=== PATIENT | female | born 1930 | race Asian ===

== ENCOUNTER 2017-03-03 14:10 | Inpatient (IN) | payer OTHER ==
[~2017-03-03] VITALS: Ht 167.6 cm; Wt 81.6 kg
[2017-03-04 06:41] LABS: PLATELET COUNT 276 K/uL (152-353)
[2017-03-04 06:48] LABS: POTASSIUM 4.2 mmol/L (3.6-5.2); SODIUM 134 mmol/L (136-145)
[2017-03-17] MEDS ORDERED: MIRALAX3350 N1 PO (12:58)
[2017-03-17] MEDS ORDERED: LISI10TA11 PO (12:59)
[2017-03-17] MEDS ORDERED: MAG OXIDE400 M2 PO (12:59)
[2017-03-17] MEDS ORDERED: LATA0.00 OP (12:59)
[2017-03-17] MEDS ORDERED: SOD CHLORIDE1 GM PO (13:00)
[2017-03-17] MEDS ORDERED: LEXAPRO10 MG PO (13:00)
[2017-03-17] MEDS ORDERED: OMEPRAZOLE20 M1 PO (13:00)
[2017-03-17] MEDS ORDERED: RIVADIS4 TOP (13:01)
[2017-03-17] MEDS ORDERED: HYDR10TA47 PO (13:05)
== END 2017-03-31 10:16 | disposition still patient (30) ==
LOC: PAVB 14:10
PROVIDERS: ADMIT Internal Medicine
DX: M62.81 Muscle weakness (generalized) (principal); R13.11 Dysphagia, oral phase; R26.89 Other abnormalities of gait and mobility; E87.1 Hypo-osmolality and hyponatremia; D64.89 Other specified anemias; H40.89 Other specified glaucoma; I10 Essential (primary) hypertension; F33.9 Major depressive disorder, recurrent, unspecified
CPT/HCPCS: 36415; 80053; 81000; 82607; 83735; 85014; 85018; 85027; 87077; 87081; 87086; 87088; 87186

== ENCOUNTER 2017-03-17 11:58 | Observation (INO) | payer OTHER ==
[~2017-03-17] VITALS: Ht 160 cm; Wt 84.1 kg
[2017-03-17 12:29] VITALS: BP 158/53; TEMP 98.7; Ht 160 cm; Wt 84.1 kg
--- NOTE | 2017-03-17 12:53 | NUR ---
BED ALARM ALARMING AND UPON ARRIVAL TO PTS ROOM PT ATTEMPTING TO GET OUT OF BED DUE TO SHE NEEDS TO CLEAN SOUP OFF OF HER. NO SOUP OR ANY FOOD IN ROOM AND ATTEMPTED TO REORIENT PT BUT SHE STATES "YOU MUST BE BLIND IF YOU CANT SEE THAT." PT ASSISTED BACK INTO BED AND BED ALARM RESET
[2017-03-17] MEDS ORDERED: MIRALAX3350 N1 PO (12:58)
[2017-03-17] MEDS ORDERED: MAG OXIDE400 M2 PO (12:59)
[2017-03-17] MEDS ORDERED: LISI10TA11 PO (12:59)
[2017-03-17] MEDS ORDERED: LATA0.00 OP (12:59)
[2017-03-17] MEDS ORDERED: SOD CHLORIDE1 GM PO (13:00)
[2017-03-17] MEDS ORDERED: OMEPRAZOLE20 M1 PO (13:00)
[2017-03-17] MEDS ORDERED: LEXAPRO10 MG PO (13:00)
[2017-03-17] MEDS ORDERED: RIVADIS4 TOP (13:01)
[2017-03-17] MEDS ORDERED: HYDR10TA47 PO (13:05)
[2017-03-17 16:00] VITALS: BP 157/63; TEMP 98.6
[2017-03-17 20:00] VITALS: BP 141/63; TEMP 97.9
[2017-03-18] VITALS: BP 144/59; TEMP 98.9
[2017-03-18 04:00] VITALS: BP 151/68; TEMP 98
[2017-03-18 06:02] LABS: PLATELET COUNT 231 K/uL (152-353)
[2017-03-18 06:15] LABS: POTASSIUM 3.6 mmol/L (3.6-5.2); SODIUM 132 mmol/L (136-145)
[2017-03-18 08:00] VITALS: BP 156/63; TEMP 98
[2017-03-18 12:23] VITALS: BP 141/58; TEMP 98.1
[2017-03-18 15:20] VITALS: BP 153/61; TEMP 98.3
[2017-03-18 20:00] VITALS: BP 136/63; TEMP 99.4
[2017-03-19] VITALS: BP 137/62; TEMP 99.4
[2017-03-19 04:00] VITALS: BP 155/63; TEMP 97.8
[2017-03-19 05:13] LABS: PLATELET COUNT 247 K/uL (152-353)
[2017-03-19 05:33] LABS: POTASSIUM 3.5 mmol/L (3.6-5.2); SODIUM 129 mmol/L (136-145)
[2017-03-19 08:00] VITALS: BP 155/71; TEMP 98.9
[2017-03-19 12:01] VITALS: BP 157/73; TEMP 99.4
--- NOTE | 2017-03-19 14:35 | NUR ---
REPORT GIVEN TO RE YEPEZ AT [facility].
--- NOTE | 2017-03-19 14:40 | NUR ---
R FA 24G IV D/C'D CATH TIP INTACT.
== END 2017-03-19 15:00 ==
LOC: MED/SURG 11:58
PROVIDERS: Emergency Medicine; ADMIT Internal Medicine
DX: N39.0 Urinary tract infection, site not specified (principal); B96.20 Unspecified Escherichia coli [E. coli] as the cause of diseases classified elsewhere; R41.82 Altered mental status, unspecified; E83.42 Hypomagnesemia; F43.10 Post-traumatic stress disorder, unspecified; I10 Essential (primary) hypertension; K21.9 Gastro-esophageal reflux disease without esophagitis; G20 Parkinson's disease; F32.89 Other specified depressive episodes
CPT/HCPCS: 36415; 80053; 81000; 83735; 85027; 99220; G0378; G0379; J0744; J1650; J3475

== ENCOUNTER 2017-03-31 10:30 | Inpatient (IN) | payer OTHER ==
[~2017-03-31 10:30] MED LIST: HYDR10TA47 PO; LATA0.00 OP; LEXAPRO10 MG PO; LISI10TA11 PO; MAG OXIDE400 M2 PO; MIRALAX3350 N1 PO; OMEPRAZOLE20 M1 PO; RIVADIS4 TOP; SOD CHLORIDE1 GM PO
[2017-04-14 05:41] LABS: POTASSIUM 3.9 mmol/L (3.6-5.2); SODIUM 139 mmol/L (136-145)
== END 2017-04-30 15:26 | disposition still patient (30) ==
LOC: PAVB 10:30
PROVIDERS: ADMIT Internal Medicine
DX: Z51.89 Encounter for other specified aftercare (principal)
CPT/HCPCS: 36415; 80048; 83735; 93306

== ENCOUNTER 2017-03-31 15:20 | Outpatient (CLI) | payer OTHER | END 2017-03-31 19:20 | disposition home or self-care (01) | LOC: RESP 15:20 | DX: R60.0 Localized edema (principal) | CPT/HCPCS: 93306 ==

== ENCOUNTER 2017-04-21 08:44 | Outpatient (CLI) | payer OTHER | END 2017-04-21 20:00 | disposition home or self-care (01) | LOC: US 08:44 | DX: R60.0 Localized edema (principal) ==

== ENCOUNTER 2017-04-30 16:00 | Inpatient (IN) | payer OTHER | END 2017-05-31 09:48 | disposition still patient (30) | LOC: PAVB 16:00 | PROVIDERS: ADMIT Internal Medicine | DX: Z51.89 Encounter for other specified aftercare (principal) ==

== ENCOUNTER 2017-05-31 11:24 | Inpatient (IN) | payer OTHER | END 2017-07-01 08:46 | disposition still patient (30) | LOC: PAVB 11:24 | PROVIDERS: ADMIT Internal Medicine | DX: Z51.89 Encounter for other specified aftercare (principal) ==

== ENCOUNTER 2017-07-01 09:34 | Inpatient (IN) | payer OTHER | END 2017-07-31 10:10 | disposition still patient (30) | LOC: PAVB 09:34 | PROVIDERS: ADMIT Internal Medicine | DX: Z51.89 Encounter for other specified aftercare (principal) ==

== ENCOUNTER 2017-07-31 10:22 | Inpatient (IN) | payer OTHER | END 2017-08-31 13:03 | disposition still patient (30) | LOC: PAVB 10:22 | PROVIDERS: ADMIT Internal Medicine ==

== ENCOUNTER 2017-08-31 14:11 | Inpatient (IN) | payer OTHER | END 2017-09-30 09:24 | disposition still patient (30) | LOC: PAVB 14:11 | PROVIDERS: ADMIT Internal Medicine ==

== ENCOUNTER 2017-09-05 09:57 | Outpatient (CLI) | payer OTHER ==
[2017-09-05 10:31] LABS: PLATELET COUNT 213 K/uL (152-353)
== END 2017-09-05 11:00 | disposition home or self-care (01) ==
LOC: LAB 09:57
PROVIDERS: Internal Medicine
DX: I10 Essential (primary) hypertension (principal); E87.1 Hypo-osmolality and hyponatremia
CPT/HCPCS: 80053; 83735; 85027

== ENCOUNTER 2017-09-30 10:03 | Inpatient (IN) | payer OTHER | END 2017-10-31 09:43 | disposition still patient (30) | LOC: PAVB 10:03 | PROVIDERS: ADMIT Internal Medicine ==

== ENCOUNTER 2017-10-31 10:49 | Inpatient (IN) | payer OTHER | END 2017-12-01 09:59 | disposition still patient (30) | LOC: PAVB 10:49 | PROVIDERS: ADMIT Internal Medicine ==

== ENCOUNTER 2017-12-01 11:05 | Inpatient (IN) | payer OTHER | END 2017-12-29 09:23 | disposition still patient (30) | LOC: PAVB 11:05 | PROVIDERS: ADMIT Internal Medicine ==

== ENCOUNTER 2017-12-29 10:28 | Inpatient (IN) | payer OTHER | END 2018-01-29 08:00 | disposition still patient (30) | LOC: PAVB 10:28 | PROVIDERS: ADMIT Internal Medicine ==

== ENCOUNTER 2018-01-29 09:00 | Inpatient (IN) | payer OTHER | END 2018-02-28 08:10 | disposition still patient (30) | LOC: PAVB 09:00 → PAVA 02-13 15:01 | PROVIDERS: ADMIT Internal Medicine ==

== ENCOUNTER 2018-02-28 08:39 | Inpatient (IN) | payer OTHER ==
[2018-03-10 04:17] LABS: PLATELET COUNT 229 K/uL (152-353)
[2018-03-10 04:31] LABS: POTASSIUM 4.3 mmol/L (3.6-5.2)
== END 2018-03-31 08:19 | disposition still patient (30) ==
LOC: PAVA 08:39
PROVIDERS: ADMIT Internal Medicine
CPT/HCPCS: 80053; 83735; 85027

== ENCOUNTER 2018-03-10 04:03 | Outpatient (CLI) | payer OTHER | END 2018-03-10 22:43 | disposition home or self-care (01) | LOC: LAB 04:03 | DX: I10 Essential (primary) hypertension (principal); E87.1 Hypo-osmolality and hyponatremia; E61.2 Magnesium deficiency ==

== ENCOUNTER 2018-03-31 08:30 | Inpatient (IN) | payer OTHER | END 2018-04-30 14:14 | disposition still patient (30) | LOC: PAVA 08:30 | PROVIDERS: ADMIT Internal Medicine ==

== ENCOUNTER 2018-04-30 14:26 | Inpatient (IN) | payer OTHER | END 2018-05-31 08:00 | disposition still patient (30) | LOC: PAVA 14:26 | PROVIDERS: ADMIT Internal Medicine ==

== ENCOUNTER 2018-05-31 09:00 | Inpatient (IN) | payer OTHER | END 2018-07-01 09:56 | disposition still patient (30) | LOC: PAVA 09:00 | PROVIDERS: ADMIT Internal Medicine ==

== ENCOUNTER 2018-07-01 10:04 | Inpatient (IN) | payer OTHER | END 2018-07-31 08:38 | disposition still patient (30) | LOC: PAVA 10:04 | PROVIDERS: ADMIT Internal Medicine ==

== ENCOUNTER 2018-07-31 08:50 | Inpatient (IN) | payer OTHER | END 2018-08-31 08:09 | disposition still patient (30) | LOC: PAVA 08:50 | PROVIDERS: ADMIT Internal Medicine ==

== ENCOUNTER 2018-08-31 08:20 | Inpatient (IN) | payer OTHER | END 2018-09-30 08:03 | disposition still patient (30) | LOC: PAVA 08:20 | PROVIDERS: ADMIT Internal Medicine ==

== ENCOUNTER 2018-09-04 04:02 | Outpatient (CLI) | payer OTHER ==
[2018-09-04 04:44] LABS: PLATELET COUNT 224 K/uL (152-353)
[2018-09-04 05:06] LABS: POTASSIUM 4.2 mmol/L (3.6-5.2)
== END 2018-09-04 19:14 | disposition home or self-care (01) ==
LOC: LAB 04:02
PROVIDERS: Internal Medicine
DX: I10 Essential (primary) hypertension (principal)
CPT/HCPCS: 36415; 80053; 83735; 85027

== ENCOUNTER 2018-09-06 22:35 | Outpatient (CLI) | payer OTHER | END 2018-09-06 23:30 | disposition home or self-care (01) | LOC: LAB 22:35 | DX: D64.9 Anemia, unspecified (principal) | CPT/HCPCS: 82607 ==

== ENCOUNTER 2018-09-30 08:13 | Inpatient (IN) | payer OTHER | END 2018-10-31 10:19 | disposition still patient (30) | LOC: PAVA 08:13 | PROVIDERS: ADMIT Internal Medicine ==

== ENCOUNTER 2018-10-10 09:30 | Outpatient (CLI) | payer OTHER | END 2018-10-10 22:10 | disposition home or self-care (01) | LOC: RAD 09:30 | DX: Z78.0 Asymptomatic menopausal state (principal) ==

== ENCOUNTER 2018-10-31 10:32 | Inpatient (IN) | payer OTHER | END 2018-12-01 14:07 | disposition still patient (30) | LOC: PAVA 10:32 | PROVIDERS: ADMIT Internal Medicine ==

== ENCOUNTER 2018-12-01 14:13 | Inpatient (IN) | payer OTHER | END 2018-12-29 09:13 | disposition still patient (30) | LOC: PAVA 14:13 | PROVIDERS: ADMIT Internal Medicine ==

== ENCOUNTER 2018-12-29 09:29 | Inpatient (IN) | payer OTHER | END 2019-01-29 07:53 | disposition still patient (30) | LOC: PAVA 09:29 | PROVIDERS: ADMIT Internal Medicine ==

== ENCOUNTER 2019-01-29 08:25 | Inpatient (IN) | payer OTHER | END 2019-02-28 09:30 | disposition still patient (30) | LOC: PAVA 08:25 | PROVIDERS: ADMIT Internal Medicine ==

== ENCOUNTER 2019-02-28 10:34 | Inpatient (IN) | payer OTHER | END 2019-03-31 08:11 | disposition still patient (30) | LOC: PAVA 10:34 | PROVIDERS: ADMIT Internal Medicine | DX: Z51.89 Encounter for other specified aftercare (principal) ==

== ENCOUNTER 2019-03-02 05:21 | Outpatient (CLI) | payer OTHER ==
[2019-03-02 05:47] LABS: PLATELET COUNT 216 K/uL (152-353)
[2019-03-02 06:10] LABS: POTASSIUM 4.8 mmol/L (3.6-5.2)
== END 2019-03-02 19:56 | disposition home or self-care (01) ==
LOC: LAB 05:21
PROVIDERS: Internal Medicine
DX: I10 Essential (primary) hypertension (principal); Z79.899 Other long term (current) drug therapy
CPT/HCPCS: 80053; 83735; 85027

== ENCOUNTER 2019-03-31 08:21 | Inpatient (IN) | payer OTHER | END 2019-04-30 08:26 | disposition still patient (30) | LOC: PAVA 08:21 | PROVIDERS: ADMIT Internal Medicine ==

== ENCOUNTER 2019-04-30 08:51 | Inpatient (IN) | payer OTHER | END 2019-05-31 09:03 | disposition still patient (30) | LOC: PAVA 08:51 | PROVIDERS: ADMIT Internal Medicine ==

== ENCOUNTER 2019-05-31 09:37 | Inpatient (IN) | payer OTHER | END 2019-07-01 15:57 | disposition still patient (30) | LOC: PAVA 09:37 | PROVIDERS: ADMIT Internal Medicine ==

== ENCOUNTER 2019-07-01 16:18 | Inpatient (IN) | payer OTHER | END 2019-07-31 08:04 | disposition still patient (30) | LOC: PAVA 16:18 | PROVIDERS: ADMIT Internal Medicine ==

== ENCOUNTER 2019-07-31 08:41 | Inpatient (IN) | payer OTHER | END 2019-08-31 08:34 | disposition still patient (30) | LOC: PAVA 08:41 | PROVIDERS: ADMIT Internal Medicine ==

== ENCOUNTER 2019-08-31 04:59 | Outpatient (CLI) | payer OTHER ==
[2019-08-31 06:33] LABS: PLATELET COUNT 230 K/uL (152-353)
[2019-08-31 06:48] LABS: POTASSIUM 4.8 mmol/L (3.6-5.2)
== END 2019-08-31 22:09 | disposition home or self-care (01) ==
LOC: LAB 04:59
PROVIDERS: Internal Medicine
DX: Z79.899 Other long term (current) drug therapy (principal); I10 Essential (primary) hypertension
CPT/HCPCS: 80053; 83735; 85027

== ENCOUNTER 2019-08-31 10:48 | Inpatient (IN) | payer OTHER | END 2019-09-30 08:00 | disposition still patient (30) | LOC: PAVA 10:48 | PROVIDERS: ADMIT Internal Medicine ==

== ENCOUNTER 2019-09-30 08:41 | Inpatient (IN) | payer OTHER | END 2019-10-31 07:58 | disposition still patient (30) | LOC: PAVA 08:41 | PROVIDERS: ADMIT Internal Medicine ==

== ENCOUNTER 2019-10-31 08:09 | Inpatient (IN) | payer OTHER | END 2019-12-01 09:30 | disposition still patient (30) | LOC: PAVA 08:09 | PROVIDERS: ADMIT Internal Medicine ==

== ENCOUNTER 2019-12-01 09:39 | Inpatient (IN) | payer OTHER | END 2019-12-30 12:44 | disposition still patient (30) | LOC: PAVA 09:39 | PROVIDERS: ADMIT Internal Medicine ==

== ENCOUNTER 2019-12-30 12:54 | Inpatient (IN) | payer OTHER | END 2020-01-30 08:57 | disposition still patient (30) | LOC: PAVA 12:54 | PROVIDERS: ADMIT Internal Medicine ==

== ENCOUNTER 2020-01-09 14:41 | Outpatient (CLI) | payer OTHER | END 2020-01-09 22:35 | disposition home or self-care (01) | LOC: LAB 14:41 | DX: R82.998 Other abnormal findings in urine (principal); R41.82 Altered mental status, unspecified | CPT/HCPCS: 81000 ==

== ENCOUNTER 2020-01-30 09:15 | Inpatient (IN) | payer OTHER | END 2020-02-29 08:01 | disposition still patient (30) | LOC: PAVA 09:15 | PROVIDERS: ADMIT Internal Medicine ==

== ENCOUNTER 2020-02-29 08:29 | Inpatient (IN) | payer OTHER | END 2020-03-31 08:10 | disposition still patient (30) | LOC: PAVA 08:29 | PROVIDERS: ADMIT Internal Medicine | CPT/HCPCS: 87635; U0002 ==

== ENCOUNTER 2020-03-03 07:02 | Outpatient (CLI) | payer OTHER ==
[2020-03-03 08:20] LABS: PLATELET COUNT 252 K/uL (152-353)
[2020-03-03 08:37] LABS: POTASSIUM 4.4 mmol/L (3.6-5.2)
== END 2020-03-03 19:22 | disposition home or self-care (01) ==
LOC: LAB 07:02
PROVIDERS: Internal Medicine
DX: I10 Essential (primary) hypertension (principal); Z79.899 Other long term (current) drug therapy; E87.1 Hypo-osmolality and hyponatremia
CPT/HCPCS: 80053; 83735; 85027

== ENCOUNTER 2020-03-06 14:02 | Outpatient (CLI) | payer OTHER ==
[2020-03-06 14:12] LABS: PLATELET COUNT 235 K/uL (152-353)
[2020-03-06 14:25] LABS: POTASSIUM 4.5 mmol/L (3.6-5.2)
== END 2020-03-06 20:11 | disposition home or self-care (01) ==
LOC: LAB 14:02
PROVIDERS: Internal Medicine
DX: U07.1 COVID-19 (principal); Z79.899 Other long term (current) drug therapy
CPT/HCPCS: 36415; 80053; 85027; 85379; 86140

== ENCOUNTER 2020-03-18 16:08 | Outpatient (CLI) | payer OTHER ==
[2020-03-18 16:42] LABS: PLATELET COUNT 286 K/uL (152-353)
[2020-03-18 16:53] LABS: POTASSIUM 4.7 mmol/L (3.6-5.2)
== END 2020-03-18 19:14 | disposition home or self-care (01) ==
LOC: LABW 16:08
PROVIDERS: Internal Medicine
DX: U07.1 COVID-19 (principal); Z79.899 Other long term (current) drug therapy
CPT/HCPCS: 80053; 85007; 85027

== ENCOUNTER 2020-03-25 05:46 | Outpatient (CLI) | payer OTHER ==
[2020-03-25 06:16] LABS: PLATELET COUNT 422 K/uL (152-353)
[2020-03-25 06:42] LABS: POTASSIUM 4.9 mmol/L (3.6-5.2)
== END 2020-03-25 21:45 | disposition home or self-care (01) ==
LOC: LAB 05:46
PROVIDERS: Internal Medicine
DX: U07.1 COVID-19 (principal); Z79.899 Other long term (current) drug therapy
CPT/HCPCS: 80053; 85027

== ENCOUNTER 2020-03-31 08:20 | Inpatient (IN) | payer OTHER | END 2020-04-30 08:25 | disposition still patient (30) | LOC: PAVA 08:20 | PROVIDERS: ADMIT Internal Medicine | CPT/HCPCS: 87635; U0002 ==

== ENCOUNTER 2020-04-30 08:47 | Inpatient (IN) | payer OTHER | END 2020-05-31 08:22 | disposition still patient (30) | LOC: PAVA 08:47 | PROVIDERS: ADMIT Internal Medicine ==

== ENCOUNTER 2020-05-23 18:42 | Outpatient (CLI) | payer OTHER ==
[2020-05-23 19:04] LABS: POTASSIUM 4.8 mmol/L (3.6-5.2)
[2020-05-23 19:14] LABS: PLATELET COUNT 255 K/uL (152-353)
== END 2020-05-23 19:51 | disposition home or self-care (01) ==
LOC: LABW 18:42
PROVIDERS: ATTEND Internal Medicine
DX: R63.4 Abnormal weight loss (principal); R63.0 Anorexia
CPT/HCPCS: 36415; 80053; 85027

== ENCOUNTER → 2020-05-23 | Outpatient (CLI) | payer OTHER | LOC: LAB 23:36 | PROVIDERS: ATTEND Internal Medicine | DX: D72.828 Other elevated white blood cell count (principal); R82.998 Other abnormal findings in urine; R79.89 Other specified abnormal findings of blood chemistry | CPT/HCPCS: 81000; 87077; 87086; 87088; 87185; 87186 ==

== ENCOUNTER → 2020-05-23 | Outpatient (CLI) | payer OTHER | LOC: RAD 23:07 | PROVIDERS: ATTEND Internal Medicine | DX: D72.828 Other elevated white blood cell count (principal) ==

== ENCOUNTER 2020-05-31 08:47 | Inpatient (IN) | payer OTHER | END 2020-07-01 10:39 | disposition still patient (30) | LOC: PAVA 08:47 | PROVIDERS: ADMIT Internal Medicine ==

== ENCOUNTER 2020-06-05 05:18 | Outpatient (CLI) | payer OTHER | END 2020-06-05 20:03 | disposition home or self-care (01) | LOC: LAB 05:18 | DX: N39.0 Urinary tract infection, site not specified (principal) | CPT/HCPCS: 81000; 87077; 87086; 87088; 87185 ==

== ENCOUNTER 2020-07-01 11:07 | Inpatient (IN) | payer OTHER | END 2020-07-31 09:27 | disposition still patient (30) | LOC: PAVA 11:07 | PROVIDERS: ADMIT Internal Medicine ==

== ENCOUNTER 2020-07-31 10:44 | Inpatient (IN) | payer OTHER | END 2020-08-31 08:00 | disposition still patient (30) | LOC: PAVA 10:44 | PROVIDERS: ADMIT Internal Medicine ==

== ENCOUNTER 2020-08-31 09:00 | Inpatient (IN) | payer OTHER | END 2020-09-30 08:33 | disposition still patient (30) | LOC: PAVA 09:00 | PROVIDERS: ADMIT Internal Medicine; ATTEND Internal Medicine ==

== ENCOUNTER 2020-09-04 08:49 | Outpatient (CLI) | payer OTHER ==
[2020-09-04 09:23] LABS: POTASSIUM 5.5 mmol/L (3.6-5.2)
[2020-09-04 10:07] LABS: PLATELET COUNT 258 K/uL (152-353)
== END 2020-09-04 20:18 | disposition home or self-care (01) ==
LOC: LAB 08:49
PROVIDERS: Internal Medicine
DX: D64.89 Other specified anemias (principal); I10 Essential (primary) hypertension; Z79.899 Other long term (current) drug therapy; E87.1 Hypo-osmolality and hyponatremia
CPT/HCPCS: 80053; 82607; 82747; 83735; 85007; 85027

== ENCOUNTER 2020-09-30 08:54 | Inpatient (IN) | payer OTHER | END 2020-10-31 08:27 | disposition still patient (30) | LOC: PAVA 08:54 | PROVIDERS: ADMIT Internal Medicine; ATTEND Internal Medicine ==

== ENCOUNTER 2020-10-14 13:57 | Outpatient (CLI) | payer OTHER | END 2020-10-14 22:02 | disposition home or self-care (01) | LOC: RAD 13:57 | PROVIDERS: ATTEND Internal Medicine | DX: M81.0 Age-related osteoporosis without current pathological fracture (principal) ==

== ENCOUNTER 2020-10-29 06:12 | Outpatient (CLI) | payer OTHER | END 2020-10-29 19:58 | disposition home or self-care (01) | LOC: LAB 06:12 | PROVIDERS: ATTEND Internal Medicine | DX: R41.82 Altered mental status, unspecified (principal); R82.998 Other abnormal findings in urine; R63.0 Anorexia; R30.9 Painful micturition, unspecified | CPT/HCPCS: 81000 ==

== ENCOUNTER 2020-10-31 08:41 | Inpatient (IN) | payer OTHER | END 2020-12-01 13:10 | disposition still patient (30) | LOC: PAVA 08:41 | PROVIDERS: ADMIT Internal Medicine; ATTEND Internal Medicine ==

== ENCOUNTER 2020-11-12 08:50 | Outpatient (CLI) | payer OTHER ==
[2020-11-12 10:14] LABS: POTASSIUM 5.5 mmol/L (3.6-5.2)
== END 2020-11-12 19:31 | disposition home or self-care (01) ==
LOC: LAB 08:50
PROVIDERS: ATTEND Internal Medicine
DX: I10 Essential (primary) hypertension (principal)
CPT/HCPCS: 80053; 83735

== ENCOUNTER 2020-11-28 17:56 | Outpatient (CLI) | payer OTHER | END 2020-11-28 23:09 | disposition home or self-care (01) | LOC: LAB 17:56 | PROVIDERS: ATTEND Internal Medicine | DX: R63.5 Abnormal weight gain (principal) | CPT/HCPCS: 83880 ==

== ENCOUNTER 2020-12-01 14:01 | Inpatient (IN) | payer OTHER | END 2020-12-29 08:39 | disposition still patient (30) | LOC: PAVA 14:01 | PROVIDERS: ADMIT Internal Medicine; ATTEND Internal Medicine ==

== ENCOUNTER 2020-12-15 06:49 | Outpatient (CLI) | payer OTHER ==
[2020-12-15 08:11] LABS: POTASSIUM 4.9 mmol/L (3.6-5.2)
== END 2020-12-15 19:25 | disposition home or self-care (01) ==
LOC: LAB 06:49
PROVIDERS: ATTEND Internal Medicine
DX: I10 Essential (primary) hypertension (principal)
CPT/HCPCS: 80053

== ENCOUNTER 2020-12-23 07:48 | Outpatient (CLI) | payer OTHER | END 2020-12-23 19:27 | disposition home or self-care (01) | LOC: CT 07:48 | PROVIDERS: ATTEND Internal Medicine | DX: K40.90 Unilateral inguinal hernia, without obstruction or gangrene, not specified as recurrent (principal) | CPT/HCPCS: Q9963 ==

== ENCOUNTER 2020-12-29 08:47 | Inpatient (IN) | payer OTHER | END 2021-01-29 08:32 | disposition still patient (30) | LOC: PAVA 08:47 | PROVIDERS: ADMIT Internal Medicine; ATTEND Internal Medicine ==

== ENCOUNTER 2021-01-14 15:50 | Outpatient (CLI) | payer OTHER | END 2021-01-14 22:23 | disposition home or self-care (01) | LOC: INF 15:50 | PROVIDERS: ATTEND Internal Medicine | DX: Z23 Encounter for immunization (principal) | CPT/HCPCS: 96372 ==

== ENCOUNTER 2021-01-15 15:47 | Outpatient (CLI) | payer OTHER ==
[2021-01-15 15:56] LABS: PLATELET COUNT 224 K/uL (152-353)
== END 2021-01-15 22:16 | disposition home or self-care (01) ==
LOC: LAB 15:47
PROVIDERS: ATTEND Internal Medicine
DX: K40.90 Unilateral inguinal hernia, without obstruction or gangrene, not specified as recurrent (principal)
CPT/HCPCS: 83605; 85027

== ENCOUNTER 2021-01-29 09:32 | Inpatient (IN) | payer OTHER | END 2021-02-28 11:56 | disposition still patient (30) | LOC: PAVA 09:32 | PROVIDERS: ADMIT Internal Medicine; ATTEND Internal Medicine ==

== ENCOUNTER 2021-02-05 09:30 | Outpatient (CLI) | payer OTHER | END 2021-02-05 22:16 | disposition home or self-care (01) | LOC: INF 09:30 | PROVIDERS: ATTEND Internal Medicine | DX: Z23 Encounter for immunization (principal) | CPT/HCPCS: 96372 ==

== ENCOUNTER 2021-02-28 10:24 | Outpatient (CLI) | payer OTHER ==
[2021-02-28 10:50] LABS: PLATELET COUNT 267 K/uL (152-353)
== END 2021-02-28 19:29 | disposition home or self-care (01) ==
LOC: LAB 10:24
PROVIDERS: ATTEND Internal Medicine
DX: E87.1 Hypo-osmolality and hyponatremia (principal); I10 Essential (primary) hypertension
CPT/HCPCS: 80053; 83735; 85027

== ENCOUNTER 2021-02-28 12:03 | Inpatient (IN) | payer OTHER | END 2021-03-31 13:07 | disposition still patient (30) | LOC: PAVA 12:03 | PROVIDERS: ADMIT Internal Medicine; ATTEND Internal Medicine ==

== ENCOUNTER 2021-03-31 14:12 | Inpatient (IN) | payer OTHER | END 2021-04-30 08:00 | disposition still patient (30) | LOC: PAVA 14:12 | PROVIDERS: ADMIT Internal Medicine; ATTEND Internal Medicine ==

== ENCOUNTER 2021-04-30 09:00 | Inpatient (IN) | payer OTHER | END 2021-05-31 08:00 | disposition still patient (30) | LOC: PAVA 09:00 | PROVIDERS: ADMIT Internal Medicine; ATTEND Internal Medicine ==

== ENCOUNTER 2021-05-16 15:06 | Emergency (ER) | payer OTHER ==
[~2021-05-16] VITALS: Ht 165.1 cm; Wt 89.8 kg
[2021-05-16 16:50] VITALS: BP 146/58; TEMP 98.2
== END 2021-05-16 16:50 | disposition home or self-care (01) ==
LOC: ED 15:06
PROC: 0HQMXZZ Repair Right Foot Skin, External Approach (ICD-10-PCS; principal; 2021-05-16)
DX: S91.311A Laceration without foreign body, right foot, initial encounter (principal); X58.XXXA Exposure to other specified factors, initial encounter; Y92.89 Other specified places as the place of occurrence of the external cause
CPT/HCPCS: 99283

== ENCOUNTER 2021-05-31 09:00 | Inpatient (IN) | payer OTHER | END 2021-07-01 09:07 | disposition still patient (30) | LOC: PAVA 09:00 | PROVIDERS: ADMIT Internal Medicine; ATTEND Internal Medicine ==

== ENCOUNTER 2021-07-01 09:18 | Inpatient (IN) | payer OTHER | END 2021-07-31 08:10 | disposition still patient (30) | LOC: PAVA 09:18 | PROVIDERS: ADMIT Internal Medicine; ATTEND Internal Medicine ==

== ENCOUNTER 2021-08-31 07:17 | Outpatient (CLI) | payer OTHER ==
[2021-08-31 08:09] LABS: PLATELET COUNT 288 K/uL (152-353)
== END 2021-08-31 19:16 | disposition home or self-care (01) ==
LOC: LAB 07:17
PROVIDERS: ATTEND Internal Medicine
DX: D53.8 Other specified nutritional anemias (principal); I10 Essential (primary) hypertension
CPT/HCPCS: 36415; 80053; 82607; 82746; 83735; 85027

== ENCOUNTER 2021-09-30 08:56 | Inpatient (IN) | payer OTHER | END 2021-10-31 07:55 | disposition still patient (30) | LOC: PAVA 08:56 | PROVIDERS: ADMIT Internal Medicine; ATTEND Internal Medicine ==

== ENCOUNTER 2021-10-31 08:04 | Inpatient (IN) | payer OTHER | END 2021-12-01 08:43 | disposition still patient (30) | LOC: PAVA 08:04 | PROVIDERS: ADMIT Internal Medicine; ATTEND Internal Medicine ==

== ENCOUNTER 2021-12-01 09:50 | Inpatient (IN) | payer OTHER | END 2021-12-29 08:53 | disposition still patient (30) | LOC: PAVA 09:50 | PROVIDERS: ADMIT Internal Medicine; ATTEND Internal Medicine ==

== ENCOUNTER 2021-12-29 10:46 | Inpatient (IN) | payer OTHER | END 2022-01-29 08:09 | disposition still patient (30) | LOC: PAVA 10:46 | PROVIDERS: ADMIT Internal Medicine; ATTEND Internal Medicine ==

== ENCOUNTER 2022-01-29 08:26 | Inpatient (IN) | payer OTHER | END 2022-02-28 10:49 | disposition still patient (30) | LOC: PAVA 08:26 | PROVIDERS: ADMIT Internal Medicine; ATTEND Internal Medicine ==

== ENCOUNTER 2022-02-28 03:32 | Inpatient (IN) | payer OTHER | END 2022-03-31 09:24 | disposition still patient (30) | LOC: PAVA 03:32 | PROVIDERS: ADMIT Internal Medicine; ATTEND Internal Medicine ==

== ENCOUNTER 2022-03-02 07:44 | Outpatient (CLI) | payer OTHER ==
[2022-03-02 08:00] LABS: PLATELET COUNT 254 K/uL (152-353)
[2022-03-02 08:18] LABS: POTASSIUM 4.1 mmol/L (3.6-5.2)
== END 2022-03-02 18:57 | disposition home or self-care (01) ==
LOC: LAB 07:44
PROVIDERS: ATTEND Internal Medicine
DX: I10 Essential (primary) hypertension (principal); D64.89 Other specified anemias; G30.1 Alzheimer's disease with late onset; E53.8 Deficiency of other specified B group vitamins
CPT/HCPCS: 80053; 82607; 82746; 83735; 85027

== ENCOUNTER 2022-03-31 11:10 | Inpatient (IN) | payer OTHER | END 2022-04-30 09:10 | disposition still patient (30) | LOC: PAVA 11:10 → PAVB 04-02 14:45 | PROVIDERS: ADMIT Internal Medicine; ATTEND Internal Medicine ==

== ENCOUNTER 2022-04-30 12:03 | Inpatient (IN) | payer OTHER | END 2022-05-31 09:20 | disposition still patient (30) | LOC: PAVB 12:03 | PROVIDERS: ADMIT Internal Medicine; ATTEND Internal Medicine ==